=== PATIENT | female | born 1970 | race Asian ===

== ENCOUNTER 2020-08-16 21:40 | Emergency (ER) | payer MEDICAID, SELFPAY ==
[2020-08-16 21:51] VITALS: BP 170/85; PULSE 73; TEMP 36.6; O2SAT 99
[2020-08-16 23:39] VITALS: BP 154/84; PULSE 67; RESP 16; TEMP 36.6; O2SAT 100; BMI 22.1
--- NOTE | 2020-08-16 23:44 | ED.GENADULT ---
HPI - General Adult General Chief complaint: Weakness Stated complaint: FATIGUE Time Seen by Provider: 08/16/20 23:18 Source: family Mode of arrival: ambulatory Limitations: language barrier History of Present Illness HPI narrative: patient with no significant past medical history been feeling weak tired with poor sleep for last 1 week patient under lot of stress lately not eating well. Patient denies any cough fever shortness of breath abdominal pain nausea or vomiting. Patient stays at home most of the times and no other family member is sick Onset (ago): week(s) (1) Severity: mild Related Data Home Medications Medication Instructions Recorded Confirmed No Known Home Meds 08/16/20 08/16/20 Allergies Allergy/AdvReac Type Severity Reaction Status Date / Time No Known Allergies Allergy Verified 08/16/20 23:39 Review of Systems Review of Systems: REVIEW OF SYSTEMS: Pertinent positives and negatives are stated above in the history. GEN: no fevers, chills, fatigue++ HEENT: no nasal congestion, sore throat, ear pain NEURO: no headache, dizziness, focal weakness PULM: no cough, shortness of breath CV: no chest pain, palpitations, LE edema ABD: no abdominal pain, nausea, vomiting, diarrhea : no dysuria, urgency, frequency SKIN: no rash ROS otherwise negative x 10 PMFSH Past Medical History Medical History No known health problems Social History Social History Advance Directives: No Advance Directives Information Provided: No Physical Exam Vital Signs: Vital Signs: Last Vital Signs Temp 97.9 F 08/16/20 23:39 Pulse 67 08/16/20 23:39 Resp 16 08/16/20 23:39 BP 154/84 H 08/16/20 23:39 Pulse Ox 100 08/16/20 23:39 Body Mass Index 22.1 Appearance: Alert. Oriented X3. No acute distress. Eyes: Pupils equal, round and reactive to light. ENT: Pharynx normal. Neck: Normal inspection. Neck supple. CVS: Normal heart rate and rhythm. Pulses normal. Respiratory: No respiratory distress. Breath sounds normal. Abdomen: Soft and nontender. Skin: Skin warm and dry. Normal skin color. Normal skin turgor. Extremities: No lower extremity edema. Good range of movement Neuro: Oriented X 3. No motor deficit. No sensory deficit. Course Course Course Narrative: patient has stable labs with 1 week of poor oral intake and tiredness with increased depression and stress at home patient refused any crisis evaluation at this time. Patient denied any suicidal ideation. Advised patient to drink plenty of fluids and follow-up with PCP. Patient COVID -19 is negative Medical Decision Making Lab Data Result diagrams: 08/16/20 23:48 08/16/20 23:48 Labs: Lab Results 08/16/20 08/16/20 08/16/20 Range/Units 23:48 23:48 23:48 WBC 4.6 L (4.8-10.8) X10*3/uL RBC 4.81 (4.20-5.50) X10*6/uL Hgb 13.6 (12.0-16.0) g/dl Hct 41.1 (37-47) % MCV 85.4 (80-98) fL MCH 28.3 (27.0-33.0) pg MCHC 33.1 (31.0-35.0) g/dl RDW 12.4 (11.0-16.0) % Plt Count 222 (160-400) X10*3/uL MPV 10.3 (9.4-12.3) fL Immature Gran % (Auto) 0.2 (0.0-0.4) % Neut % (Auto) 47.7 (45-73) % Lymph % (Auto) 41.0 H (20-40) % [place] % (Auto) 8.7 (2-11) % Eos % (Auto) 2.0 (0-4) % Baso % (Auto) 0.4 (0-2) % Lymph # (Auto) 1.9 (1.2-4.9) X10*3/uL [place] # (Auto) 0.4 (0.1-1.2) X10*3/uL Eos # (Auto) 0.1 (0.0-0.4) X10*3/uL Baso # (Auto) 0.0 (0.0-0.2) X10*3/uL Abs Immat Gran (auto) 0.01 (0.00-0.03) X10*3/uL Absolute Neuts (auto) 2.2 (2.0-8.3) X10*3/uL Absolute Nucleated RBC 0.000 (0.0-0.012) X10*3/uL Nucleated RBC % (auto) 0.0 (0.0-0.2) /100WBC Sodium 141 (135-145) mmol/L Potassium 3.9 (3.3-5.1) mmol/l Chloride 102 (96-108) mmol/L Carbon Dioxide 32 H (22-29) mmol/L Anion Gap 11 L (12-20) BUN 17 H (9-16) mg/dL Creatinine 0.73 (0.5-1.4) mg/dL Estim Creat Clear Calc 71.2 Estimated GFR > 60 Random Glucose 118 H (60-115) mg/dL Calcium 9.2 (8.4-10.2) mg/dL Total Bilirubin (0.0-1.0) mg/dL Direct Bilirubin (0.0-0.5) mg/dL AST (5-31) U/L ALT (0-31) U/L Alkaline Phosphatase (39-117) U/L Total Protein (6.5-8.0) g/dL Albumin (3.5-5.0) g/dL Urine Color Urine Appearance Urine pH (5.0-8.0) Ur Specific [place] (1.005-1.025) Urine Protein (NEG-TRACE) MG/DL Urine Glucose (UA) (NEG) MG/DL Urine Ketones (NEG) MG/DL Urine Blood (NEG) Urine Nitrite (NEG) Ur Leukocyte Esterase (NEG) COVID-19 (PATRICIO) Negative (Negative) COVID-19 Clin Com See Note 08/16/20 08/16/20 Range/Units 23:48 23:55 WBC (4.8-10.8) X10*3/uL RBC (4.20-5.50) X10*6/uL Hgb (12.0-16.0) g/dl Hct (37-47) % MCV (80-98) fL MCH (27.0-33.0) pg MCHC (31.0-35.0) g/dl RDW (11.0-16.0) % Plt Count (160-400) X10*3/uL MPV (9.4-12.3) fL Immature Gran % (Auto) (0.0-0.4) % Neut % (Auto) (45-73) % Lymph % (Auto) (20-40) % [place] % (Auto) (2-11) % Eos % (Auto) (0-4) % Baso % (Auto) (0-2) % Lymph # (Auto) (1.2-4.9) X10*3/uL [place] # (Auto) (0.1-1.2) X10*3/uL Eos # (Auto) (0.0-0.4) X10*3/uL Baso # (Auto) (0.0-0.2) X10*3/uL Abs Immat Gran (auto) (0.00-0.03) X10*3/uL Absolute Neuts (auto) (2.0-8.3) X10*3/uL Absolute Nucleated RBC (0.0-0.012) X10*3/uL Nucleated RBC % (auto) (0.0-0.2) /100WBC Sodium (135-145) mmol/L Potassium (3.3-5.1) mmol/l Chloride (96-108) mmol/L Carbon Dioxide (22-29) mmol/L Anion Gap (12-20) BUN (9-16) mg/dL Creatinine (0.5-1.4) mg/dL Estim Creat Clear Calc Estimated GFR Random Glucose (60-115) mg/dL Calcium (8.4-10.2) mg/dL Total Bilirubin 0.3 (0.0-1.0) mg/dL Direct Bilirubin < 0.2 (0.0-0.5) mg/dL AST 20 (5-31) U/L ALT 17 (0-31) U/L Alkaline Phosphatase 82 (39-117) U/L Total Protein 7.3 (6.5-8.0) g/dL Albumin 4.0 (3.5-5.0) g/dL Urine Color YELLOW Urine Appearance CLEAR Urine pH 8.5 H (5.0-8.0) Ur Specific [place] 1.015 (1.005-1.025) Urine Protein NEG (NEG-TRACE) MG/DL Urine Glucose (UA) NEG (NEG) MG/DL Urine Ketones NEG (NEG) MG/DL Urine Blood NEG (NEG) Urine Nitrite NEG (NEG) Ur Leukocyte Esterase NEG (NEG) COVID-19 (PATRICIO) (Negative) COVID-19 Clin Com Discharge Plan Discharge Clinical Impression: Weakness Depression Qualifiers: Depression Type: reactive depression Qualified Code(s): F32.9 - Major depressive disorder, single episode, unspecified Patient Disposition: Home, Self-Care Instructions: Depression (ED), Weakness (ED) Additional Instructions: drink plenty of fluids and follow-up with PCP Prescriptions: No Action No Known Home Meds RF: 0
[2020-08-16] MEDS: 0.9 % Sodium Chloride 1,000 ML 999 ML IVCONT (23:54)
[2020-08-17] LABS: Basophils Percent Auto 0.4 % (0-2); Eosinophils Absolute Auto 0.1 X10*3/uL (0.0-0.4); Hematocrit 41.1 % (37-47); Hemoglobin 13.6 g/dl (12.0-16.0); Imm Gran Abs Auto 0.01 X10*3/uL (0.00-0.03); Imm Gran Pct Auto 0.2 % (0.0-0.4); Lymphocytes Absolute Auto 1.9 X10*3/uL (1.2-4.9); MANUAL DIFF FLAG NO; Mean Corpuscular HGB Conc 33.1 g/dl (31.0-35.0); Mean Corpuscular Hemoglobin 28.3 pg (27.0-33.0); Mean Corpuscular Volume 85.4 fL (80-98); Mean Platelet Volume 10.3 fL (9.4-12.3); Monocytes Absolute Auto 0.4 X10*3/uL (0.1-1.2); Monocytes Percent Auto 8.7 % (2-11); Neutrophils Absolute Auto 2.2 X10*3/uL (2.0-8.3); Neutrophils Percent Auto 47.7 % (45-73); Platelet Count 222 X10*3/uL (160-400); Red Blood Count 4.81 X10*6/uL (4.20-5.50); Red Cell Distribution Width 12.4 % (11.0-16.0); White Blood Count 4.6 X10*3/uL (4.8-10.8)
--- NOTE | 2020-08-17 00:01 | PC.NURSE ---
Pt resting in bed, awake and alert, speaking full sentences however [place] speaking only. Daughter at bedside able to interpret for pt. IV established, labs, UA and Covid swab obtained and sent. IVF infusing per EMAR. Pt and family aware of plan to await labs. Call armijo within reach, continue to monitor.
[2020-08-17 00:02] LABS: Appearance Urine CLEAR; Color Urine YELLOW; Glucose Urine UA NEG (NEG); Leukocyte Esterase Urine NEG (NEG); Nitrite Urine NEG (NEG); PH 8.5 (5.0-8.0); Specific Gravity - Urine 1.015 (1.005-1.025); UACC Culture Trigger NO; Urine Blood NEG (NEG); Urine Ketones NEG (NEG); Urine Protein NEG (NEG-TRACE)
[2020-08-17 00:38] LABS: COVID-19 Test Negative (Negative)
[2020-08-17 00:44] LABS: Anion Gap 11 (12-20); Blood Urea Nitrogen 17 mg/dL (9-16); Calcium 9.2 mg/dL (8.4-10.2); Carbon Dioxide 32 mmol/L (22-29); Chloride 102 mmol/L (96-108); Creatinine Clr Calc Pharmacy 71.2; Estimated Glomerular Filt Rate > 60; Glucose Random 118 mg/dL (60-115); Potassium 3.9 mmol/l (3.3-5.1); Sodium 141 mmol/L (135-145)
[2020-08-17 00:45] LABS: Alanine Aminotransferase 17 U/L (0-31); Alkaline Phosphatase 82 U/L (39-117); Aspartate Amino Transferase 20 U/L (5-31); Bilirubin Direct < 0.2 mg/dL (0.0-0.5); Bilirubin Total 0.3 mg/dL (0.0-1.0); Total Protein 7.3 g/dL (6.5-8.0)
[2020-08-17 01:48] VITALS: BP 152/82; PULSE 59; RESP 16; TEMP 36.4; O2SAT 100
== END 2020-08-17 01:51 | disposition home or self-care (01) ==
PROVIDERS: Emergency Provider Internal Medicine
DX: F33.1 Major depressive disorder, recurrent, moderate (principal); R53.1 Weakness; Z20.828 Contact with and (suspected) exposure to other viral communicable diseases
CPT/HCPCS: 36415; 80048; 80076; 81003; 85025; 87635; 96360; 99284